=== PATIENT | female | born 1965 | race Caucasian/White ===

== ENCOUNTER 2021-01-07 19:15 | Inpatient (IN) | payer MEDICAID, OTHER ==
[~2021-01-07] VITALS: Ht 154.9 cm; Wt 70.8 kg
[2021-01-07] MEDS ORDERED: SODIUM CHLORIDE 0.9% 1,000 ML IV ONE (19:45)
[2021-01-07] MEDS ORDERED: METOCLOPRAMIDE HCL 10MG/2ML VIAL IV ONE (19:45)
[2021-01-07 20:57] LABS: HEMATOCRIT. 35.3 % (36.0-48.0); HEMOGLOBIN. 11.4 g/dL (12.0-16.0); MEAN CORPUSCULAR VOLUME 92.8 fL (81.0-99.0); MEAN PLATELET VOLUME 8.6 fl (7.4-10.4); PLATELET 267 x1000/uL (130-400); RED BLOOD CELL COUNT 3.81 mill/uL (4.2-5.4); RED CELL DISTRIBUTION WIDTH 15.1 % (11.6-14.6)
[2021-01-07 21:00] LABS: CHLORIDE 97 mEq/L (98-107)
[2021-01-07 21:01] LABS: PROTHROMBIN TIME 10.3 sec (9.6-11.0)
[2021-01-07 21:04] LABS: ETHANOL BLOOD < 10 mg/dL
[2021-01-07 21:06] LABS: PHOSPHORUS 3.7 mg/dL (2.5-4.9)
[2021-01-07] MEDS ORDERED: PANTOPRAZOLE SODIUM 40 MG/VIAL IV ONE (21:15)
[2021-01-07] MEDS ORDERED: INSULIN REGULAR (HUMULIN R) 300UNITS/3ML VIAL IV STA (21:28)
[2021-01-07] MEDS ORDERED: MORPHINE SULFATE 4 MG/ML CPJ (NOT FOR IM USE) IV ONE (21:30)
[2021-01-07] MEDS ORDERED: SODIUM CHLORIDE 0.9% 1000ML BAG (SEPSIS BOLUS) IV ONE (21:30)
[2021-01-07] MEDS ORDERED: ACETAMINOPHEN 325MG TABLET PO ONE (21:30)
[2021-01-07 22:01] LABS: PLATELET ESTIMATE NORMAL
[2021-01-07 22:42] LABS: BG BASE EXCESS -5.6 mmol/L (-2.0-2.0); BG CARBOXYHEMOGLOBIN 0.2 % (0.5-1.5); BG DEOXYHEMOGLOBIN 13.8 % (0.0-5.0); BG FRACTION INSPIRED OXYGEN 21; BG HCO3 ACT 19.2 mmol/L (22.0-26.0); BG METHEMOGLOBIN 0.1 % (0.0-1.5); BG OXYGEN SATURATION 86.2 % (92.0-98.5); BG OXYHEMOGLOBIN 85.9 % (94.0-97.0); BG PH 7.357 (7.350-7.450); BG PO2 55.2 mmHg (75.0-100.0); BG SAMPLE SITE RIGHT BRACHIAL; BG TOTAL HEMOGLOBIN 11.3 g/dL (12.0-18.0); BG VENT MODE ROOM AIR
[2021-01-08] VITALS (12 sets, daily range): BP systolic 95–158; BP diastolic 34–89
[2021-01-08] MEDS ORDERED: PIPERACILLIN/TAZ 3.375G PREMIX 50 ML IV NR (00:45)
[2021-01-08] MEDS ORDERED: VANCOMYCIN 1 G PREMIX 200 ML IV SCH (00:45)
[2021-01-08] MEDS ORDERED: PIPERACILLIN/TAZOBACTAM 3.375GM/50ML PREMIX IV ONE (00:45)
[2021-01-08] MEDS ORDERED: DEXTROSE 50% WATER 50ML SYRINGE IV PRN ×2 (04:15→11:15)
[2021-01-08] MEDS: ONDANSETRON HCL 4MG/2ML INJ IV PRN ×2 (04:22→18:44)
[2021-01-08] MEDS: SODIUM CHLORIDE 0.9% 1,000 ML IV SCH ×3 (04:36→21:00)
[2021-01-08] MEDS ORDERED: NALOXONE HCL 0.4MG/ML VIAL IV PRN (04:45)
[2021-01-08] MEDS: MORPHINE SULFATE 2 MG/ML CPJ (NOT FOR IM USE) IV PRN ×3 (04:49→21:29)
[2021-01-08] MEDS ORDERED: INSULIN LISPRO 100 UNITS/ML SUBCUT NR (05:45)
[2021-01-08] MEDS ORDERED: INSULIN LISPRO 100 UNITS/ML SUBCUT SCH (06:00)
[2021-01-08] MEDS ORDERED: BLOOD SUGAR DIAGNOSTIC STRIP TEST SCH (06:00)
[2021-01-08] MEDS: AMLODIPINE 10MG TABLET PO SCH (08:07)
[2021-01-08] MEDS: PANTOPRAZOLE SODIUM 40 MG/VIAL IV SCH (08:08)
[2021-01-08] MEDS: LABETALOL HCL 200MG TABLET PO SCH ×2 (08:34→21:27)
[2021-01-08] MEDS: INSULIN GLARGINE UD 100 UNITS/ML SYR SUBCUT SCH ×2 (11:22→21:28)
[2021-01-08] MEDS: BLOOD SUGAR DIAGNOSTIC STRIP TEST SCH ×3 (11:39→21:11)
[2021-01-08] MEDS: METOCLOPRAMIDE HCL 10MG/2ML VIAL IV SCH ×3 (11:52→23:33)
[2021-01-08] MEDS: SUCRALFATE 1 G/10 ML UDC PO SCH ×3 (11:52→21:27)
[2021-01-08 11:53] LABS: HEMOGLOBIN. 8.9 g/dL (12.0-16.0); MEAN CORPUSCULAR HEMOGLOBIN 29.8 pg (28.0-32.0); MEAN CORPUSCULAR VOLUME 90.1 fL (81.0-99.0); MEAN PLATELET VOLUME 8.7 fl (7.4-10.4); PLATELET 197 x1000/uL (130-400); RED CELL DISTRIBUTION WIDTH 15.5 % (11.6-14.6)
[2021-01-08] MEDS: INSULIN LISPRO 100 UNITS/ML SUBCUT SCH ×3 (11:53→21:28)
[2021-01-08 12:12] LABS: TOTAL IRON BINDING CAPACITY 169 ug/dL (250-450)
[2021-01-08 12:27] LABS: FOLIC ACID (FOLATE) SERUM 15.3 ng/mL (>5.38)
[2021-01-08] MEDS ORDERED: POTASSIUM CHLORIDE INJ 40 MEQ in DEXT 5% WATER 250 ML IV ONE (12:30)
[2021-01-08] MEDS: KCL 20MEQ/100ML PREMIX 100 ML IV SCH ×2 (14:03→16:12)
[2021-01-08 14:26] LABS: PLATELET ESTIMATE NORMAL
[2021-01-08 19:25] LABS: CLARITY URINE TURBID (CLEAR); COLOR URINE YELLOW (YELLOW); KETONES URINE TRACE (NEGATIVE); LEUKOCYTE ESTERASE URINE 2+ (NEGATIVE); NITRITE URINE NEGATIVE (NEGATIVE); OCCULT BLOOD URINE 3+ (NEGATIVE); PROTEIN URINE 4+ (NEGATIVE); UROBILINOGEN URINE 0.2 E.U./dL (0.2-1.0)
[2021-01-09] VITALS (12 sets, daily range): BP systolic 105–139; BP diastolic 51–78
[2021-01-09] MEDS: ONDANSETRON HCL 4MG/2ML INJ IV PRN (02:33)
[2021-01-09] MEDS: SODIUM CHLORIDE 0.9% 1,000 ML IV SCH (02:33)
[2021-01-09] MEDS: SUCRALFATE 1 G/10 ML UDC PO SCH ×4 (06:07→21:21)
[2021-01-09] MEDS: METOCLOPRAMIDE HCL 10MG/2ML VIAL IV SCH ×4 (06:07→21:21)
[2021-01-09] MEDS: INSULIN LISPRO 100 UNITS/ML SUBCUT SCH ×4 (07:05→21:22)
[2021-01-09] MEDS: BLOOD SUGAR DIAGNOSTIC STRIP TEST SCH ×4 (07:05→21:12)
[2021-01-09] MEDS: AMLODIPINE 10MG TABLET PO SCH (09:00)
[2021-01-09] MEDS: PANTOPRAZOLE SODIUM 40 MG/VIAL IV SCH (09:00)
[2021-01-09] MEDS: LABETALOL HCL 200MG TABLET PO SCH ×2 (09:00→21:22)
[2021-01-09] MEDS: INSULIN GLARGINE UD 100 UNITS/ML SYR SUBCUT SCH ×2 (09:53→21:22)
[2021-01-09 10:40] LABS: BASOPHILS % 0.6 % (0.0-2.0); EOSINOPHILS % 5.3 % (0.0-5.0); HEMATOCRIT. 28.8 % (36.0-48.0); HEMOGLOBIN. 9.4 g/dL (12.0-16.0); LYMPHOCYTES % 14.9 % (20.0-50.0); MEAN CORPUSCULAR HEMOGLOBIN 29.7 pg (28.0-32.0); MEAN CORPUSCULAR VOLUME 91.4 fL (81.0-99.0); MEAN PLATELET VOLUME 8.6 fl (7.4-10.4); MONOCYTES % 1.5 % (2.0-8.0); NEUTROPHILS % 77.7 % (40.0-76.0); PLATELET 218 x1000/uL (130-400); RED BLOOD CELL COUNT 3.15 mill/uL (4.2-5.4)
[2021-01-09 10:41] LABS: CHLORIDE 119 mEq/L (98-107)
[2021-01-09 10:46] LABS: INR 0.9; PROTHROMBIN TIME 9.8 sec (9.6-11.0)
[2021-01-09] MEDS ORDERED: MIDAZOLAM HCL 5 MG/5 ML VIAL ONE (11:30)
[2021-01-09] MEDS ORDERED: FENTANYL CITRATE/PF 50MCG/ML 2ML VIAL ONE (11:30)
[2021-01-09] MEDS ORDERED: MIDAZOLAM HCL 2 MG/2 ML VIAL IV PRN (11:54)
[2021-01-09] MEDS: CEFTRIAXONE 1,000 MG in DEXTROSE 5% WATER 50 ML IV SCH (15:07)
[2021-01-09] MEDS: DEXTROSE 5% WATER 1,000 ML IV SCH ×2 (15:08→21:13)
[2021-01-09] MEDS: MORPHINE SULFATE 2 MG/ML CPJ (NOT FOR IM USE) IV PRN (21:23)
[2021-01-10] VITALS (12 sets, daily range): BP systolic 100–139; BP diastolic 53–78
[2021-01-10] MEDS: ONDANSETRON HCL 4MG/2ML INJ IV PRN (01:01)
[2021-01-10] MEDS: DEXTROSE 5% WATER 1,000 ML IV SCH ×2 (04:45→14:23)
[2021-01-10] MEDS: INSULIN LISPRO 100 UNITS/ML SUBCUT SCH ×4 (05:57→21:00)
[2021-01-10] MEDS: BLOOD SUGAR DIAGNOSTIC STRIP TEST SCH ×4 (05:57→21:26)
[2021-01-10] MEDS: SUCRALFATE 1 G/10 ML UDC PO SCH ×3 (06:02→16:41)
[2021-01-10] MEDS: METOCLOPRAMIDE HCL 10MG/2ML VIAL IV SCH ×4 (06:02→22:03)
[2021-01-10] MEDS: MORPHINE SULFATE 2 MG/ML CPJ (NOT FOR IM USE) IV PRN ×2 (06:03→14:35)
[2021-01-10] MEDS: AMLODIPINE 10MG TABLET PO SCH (08:10)
[2021-01-10] MEDS: LABETALOL HCL 200MG TABLET PO SCH ×2 (08:10→22:04)
[2021-01-10] MEDS: PANTOPRAZOLE SODIUM 40 MG/VIAL IV SCH (08:10)
[2021-01-10] MEDS: HYDROCODONE/ACETAMINOPHEN 5/325MG TABLET PO PRN ×2 (08:11→22:06)
[2021-01-10] MEDS: INSULIN GLARGINE UD 100 UNITS/ML SYR SUBCUT SCH ×2 (10:13→22:03)
[2021-01-10] MEDS: CEFTRIAXONE 1,000 MG in DEXTROSE 5% WATER 50 ML IV SCH (13:49)
[2021-01-10] MEDS: SUCRALFATE 1G TABLET PO SCH (22:03)
[2021-01-11] VITALS (17 sets, daily range): BP systolic 87–134; BP diastolic 46–76
[2021-01-11] MEDS: DEXTROSE 5% WATER 1,000 ML IV SCH ×3 (01:07→20:19)
[2021-01-11 05:11] LABS: BASOPHILS % 0.2 % (0.0-2.0); EOSINOPHILS % 9.3 % (0.0-5.0); LYMPHOCYTES % 34.9 % (20.0-50.0); MEAN PLATELET VOLUME 8.5 fl (7.4-10.4); MONOCYTES % 2.4 % (2.0-8.0); NEUTROPHILS % 53.2 % (40.0-76.0); PLATELET 181 x1000/uL (130-400); RED BLOOD CELL COUNT 2.61 mill/uL (4.2-5.4); RED CELL DISTRIBUTION WIDTH 15.6 % (11.6-14.6)
[2021-01-11 05:35] LABS: CHLORIDE 107 mEq/L (98-107)
[2021-01-11] MEDS: SUCRALFATE 1G TABLET PO SCH ×4 (06:04→20:20)
[2021-01-11] MEDS: METOCLOPRAMIDE HCL 10MG/2ML VIAL IV SCH ×4 (06:04→20:20)
[2021-01-11] MEDS: BLOOD SUGAR DIAGNOSTIC STRIP TEST SCH ×4 (06:13→20:22)
[2021-01-11] MEDS: INSULIN LISPRO 100 UNITS/ML SUBCUT SCH ×4 (06:13→20:45)
[2021-01-11 06:44] LABS: HEMOGLOBIN. 7.8 g/dL (12.0-16.0)
[2021-01-11 06:47] LABS: HEMATOCRIT. 23.8 % (36.0-48.0)
[2021-01-11] MEDS: AMLODIPINE 10MG TABLET PO SCH (08:39)
[2021-01-11] MEDS: PANTOPRAZOLE SODIUM 40 MG/VIAL IV SCH ×2 (08:39→17:42)
[2021-01-11] MEDS: LABETALOL HCL 200MG TABLET PO SCH ×2 (08:40→21:00)
[2021-01-11] MEDS: HYDROCODONE/ACETAMINOPHEN 5/325MG TABLET PO PRN ×2 (08:40→20:21)
[2021-01-11] MEDS ORDERED: POTASSIUM CHLORIDE 20MEQ TABLET SR PO NR (10:00)
[2021-01-11] MEDS: INSULIN GLARGINE UD 100 UNITS/ML SYR SUBCUT SCH ×2 (12:09→22:18)
[2021-01-11] MEDS: CEFTRIAXONE 1,000 MG in DEXTROSE 5% WATER 50 ML IV SCH (14:18)
[2021-01-11] MEDS: ONDANSETRON HCL 4MG/2ML INJ IV PRN (20:20)
[2021-01-12] VITALS (26 sets, daily range): BP systolic 88–137; BP diastolic 39–82
[2021-01-12] MEDS: BLOOD SUGAR DIAGNOSTIC STRIP TEST SCH ×4 (06:01→20:41)
[2021-01-12] MEDS: HYDROCODONE/ACETAMINOPHEN 5/325MG TABLET PO PRN ×2 (06:02→20:40)
[2021-01-12] MEDS: SUCRALFATE 1G TABLET PO SCH ×4 (06:04→20:40)
[2021-01-12] MEDS: METOCLOPRAMIDE HCL 10MG/2ML VIAL IV SCH ×4 (06:04→20:39)
[2021-01-12] MEDS: DEXTROSE 5% WATER 1,000 ML IV SCH (06:13)
[2021-01-12] MEDS: INSULIN LISPRO 100 UNITS/ML SUBCUT SCH ×4 (06:42→20:40)
[2021-01-12 08:04] LABS: BASOPHILS % 0.2 % (0.0-2.0); EOSINOPHILS % 10.1 % (0.0-5.0); HEMOGLOBIN. 7.8 g/dL (12.0-16.0); LYMPHOCYTES % 34.7 % (20.0-50.0); MEAN CORPUSCULAR HEMOGLOBIN 30.4 pg (28.0-32.0); MEAN CORPUSCULAR VOLUME 89.7 fL (81.0-99.0); MEAN PLATELET VOLUME 8.4 fl (7.4-10.4); MONOCYTES % 5.1 % (2.0-8.0); NEUTROPHILS % 49.9 % (40.0-76.0); PLATELET 214 x1000/uL (130-400); RED BLOOD CELL COUNT 2.56 mill/uL (4.2-5.4); RED CELL DISTRIBUTION WIDTH 15.3 % (11.6-14.6)
[2021-01-12 08:06] LABS: CHLORIDE 99 mEq/L (98-107)
[2021-01-12] MEDS: PANTOPRAZOLE SODIUM 40 MG/VIAL IV SCH ×2 (08:34→17:06)
[2021-01-12] MEDS: AMLODIPINE 10MG TABLET PO SCH (08:36)
[2021-01-12] MEDS: LABETALOL HCL 200MG TABLET PO SCH ×2 (08:36→20:40)
[2021-01-12] MEDS: ONDANSETRON HCL 4MG/2ML INJ IV PRN (08:37)
[2021-01-12] MEDS: CEFTRIAXONE 1,000 MG in DEXTROSE 5% WATER 50 ML IV SCH (13:39)
[2021-01-13] VITALS (12 sets, daily range): BP systolic 103–149; BP diastolic 40–96
[2021-01-13] MEDS: SUCRALFATE 1G TABLET PO SCH ×4 (06:24→21:24)
[2021-01-13] MEDS: METOCLOPRAMIDE HCL 10MG/2ML VIAL IV SCH ×4 (06:25→21:25)
[2021-01-13] MEDS: INSULIN LISPRO 100 UNITS/ML SUBCUT SCH ×4 (06:25→21:00)
[2021-01-13] MEDS: BLOOD SUGAR DIAGNOSTIC STRIP TEST SCH ×4 (06:25→21:00)
[2021-01-13 08:31] LABS: BASOPHILS % 0.3 % (0.0-2.0); EOSINOPHILS % 11.6 % (0.0-5.0); HEMATOCRIT. 25.7 % (36.0-48.0); HEMOGLOBIN. 8.7 g/dL (12.0-16.0); LYMPHOCYTES % 32.7 % (20.0-50.0); MEAN CORPUSCULAR HEMOGLOBIN 31.1 pg (28.0-32.0); MEAN CORPUSCULAR VOLUME 91.6 fL (81.0-99.0); MEAN PLATELET VOLUME 8.6 fl (7.4-10.4); MONOCYTES % 7.4 % (2.0-8.0); PLATELET 233 x1000/uL (130-400); RED BLOOD CELL COUNT 2.81 mill/uL (4.2-5.4); RED CELL DISTRIBUTION WIDTH 14.9 % (11.6-14.6)
[2021-01-13 08:54] LABS: CHLORIDE 100 mEq/L (98-107)
[2021-01-13 09:34] LABS: CREATINE KINASE 436 IU/L (26-192)
[2021-01-13] MEDS: PANTOPRAZOLE SODIUM 40 MG/VIAL IV SCH ×2 (10:24→17:22)
[2021-01-13] MEDS: LABETALOL HCL 200MG TABLET PO SCH ×2 (10:25→21:25)
[2021-01-13] MEDS: LOPERAMIDE HCL 2MG CAPSULE PO PRN ×2 (10:25→21:24)
[2021-01-13] MEDS: AMLODIPINE 10MG TABLET PO SCH (10:25)
[2021-01-13] MEDS: HYDROCODONE/ACETAMINOPHEN 5/325MG TABLET PO PRN ×2 (10:28→21:57)
[2021-01-13] MEDS: DEXT 5%/0.9% NACL 1,000 ML IV SCH (10:30)
[2021-01-13 16:03] LABS: AMYLASE 40 IU/L (25-115)
[2021-01-13] MEDS: CEFTRIAXONE 1,000 MG in DEXTROSE 5% WATER 50 ML IV SCH (17:22)
[2021-01-14 00:26] VITALS: BP 113/65
[2021-01-14 02:02] VITALS: BP 116/72
[2021-01-14] MEDS: HYDROCODONE/ACETAMINOPHEN 5/325MG TABLET PO PRN ×2 (02:02→08:59)
[2021-01-14] MEDS: DEXT 5%/0.9% NACL 1,000 ML IV SCH (02:02)
[2021-01-14 04:12] VITALS: BP 96/56
[2021-01-14 06:30] VITALS: BP 104/69
[2021-01-14] MEDS: SUCRALFATE 1G TABLET PO SCH (06:50)
[2021-01-14] MEDS: INSULIN LISPRO 100 UNITS/ML SUBCUT SCH (06:50)
[2021-01-14] MEDS: BLOOD SUGAR DIAGNOSTIC STRIP TEST SCH (06:50)
[2021-01-14] MEDS: METOCLOPRAMIDE HCL 10MG/2ML VIAL IV SCH (06:50)
[2021-01-14 08:00] VITALS: BP 111/71
[2021-01-14 08:08] LABS: ANTI-NUCLEAR ANTIBODIES DIRECT Negative (Negative)
[2021-01-14] MEDS ORDERED: LIDOCAINE HCL 1% 10 MG/ML 10ML VIAL ONE (08:15)
[2021-01-14 08:38] LABS: BASOPHILS % 0.5 % (0.0-2.0); EOSINOPHILS % 13.5 % (0.0-5.0); HEMATOCRIT. 22.6 % (36.0-48.0); HEMOGLOBIN. 7.7 g/dL (12.0-16.0); MEAN CORPUSCULAR HEMOGLOBIN 30.2 pg (28.0-32.0); MEAN CORPUSCULAR VOLUME 88.7 fL (81.0-99.0); MONOCYTES % 14.6 % (2.0-8.0); NEUTROPHILS % 28.4 % (40.0-76.0); PLATELET 226 x1000/uL (130-400); RED BLOOD CELL COUNT 2.55 mill/uL (4.2-5.4)
[2021-01-14 08:53] LABS: CHLORIDE 102 mEq/L (98-107)
[2021-01-14] MEDS: LABETALOL HCL 200MG TABLET PO SCH (08:56)
[2021-01-14] MEDS: AMLODIPINE 10MG TABLET PO SCH (08:56)
[2021-01-14] MEDS: PANTOPRAZOLE SODIUM 40 MG/VIAL IV SCH (08:58)
[2021-01-14 10:00] VITALS: BP 103/69
[2021-01-14] MEDS ORDERED: LEVOTHYROXINE SODIUM 25MCG TABLET PO SCH (10:30)
== END 2021-01-14 16:16 | disposition left against medical advice (07) | DRG 241 ==
LOC: ER 19:15 → 3WST 23:52 → ENRESERV 01-08 01:34
PROVIDERS: ADMIT Internal Medicine; ATTEND Internal Medicine
PROC: 0DB78ZX Excision of Stomach, Pylorus, Via Natural or Artificial Opening Endoscopic, Diagnostic (ICD-10-PCS; principal; 2021-01-09)
DX: K29.71 Gastritis, unspecified, with bleeding (principal); E43 Unspecified severe protein-calorie malnutrition; N17.9 Acute kidney failure, unspecified; K22.11 Ulcer of esophagus with bleeding; K21.01 Gastro-esophageal reflux disease with esophagitis, with bleeding; E11.22 Type 2 diabetes mellitus with diabetic chronic kidney disease; E87.1 Hypo-osmolality and hyponatremia; K29.81 Duodenitis with bleeding; E87.8 Other disorders of electrolyte and fluid balance, not elsewhere classified; C53.9 Malignant neoplasm of cervix uteri, unspecified; D64.9 Anemia, unspecified; E05.90 Thyrotoxicosis, unspecified without thyrotoxic crisis or storm; E78.5 Hyperlipidemia, unspecified; Z20.822 Contact with and (suspected) exposure to COVID-19; I12.9 Hypertensive chronic kidney disease with stage 1 through stage 4 chronic kidney disease, or unspecified chronic kidney disease; N18.9 Chronic kidney disease, unspecified; R19.5 Other fecal abnormalities; K21.9 Gastro-esophageal reflux disease without esophagitis; E11.65 Type 2 diabetes mellitus with hyperglycemia; E87.6 Hypokalemia; E86.0 Dehydration; R19.7 Diarrhea, unspecified; N39.0 Urinary tract infection, site not specified; Z79.4 Long term (current) use of insulin; Z85.41 Personal history of malignant neoplasm of cervix uteri; Z68.29 Body mass index [BMI] 29.0-29.9, adult; Z99.3 Dependence on wheelchair
CPT/HCPCS: 36415; 36600; 71045; 74018; 74176; 76770; 76856; 80048; 80053; 80061; 80320; 81003; 82010; 82150; 82270; 82375; 82533; 82550; 82607; 82728; 82746; 82805; 82962; 83036; 83540; 83550; 83605; 83930; 84100; 84145; 84443; 84550; 85018; 85025; 85044; 86038; 86160; 86850; 86900; 86920; 87015; 87045; 87252; 87426; 87427; 87449; 88305; 88312; 88313; 93005; 97166; 97530; 99285; C9113; J0696; J1815; J2250; J2270; J2405; J2765; J3010; J3480; J3490; J7030; J7040; J7042; J7060; J7070; A4315; G0480